=== PATIENT | male | born 1990 | race Caucasian/White ===

== ENCOUNTER 2021-09-28 14:52 | Emergency (ER) | payer OTHER, SELFPAY ==
[2021-09-28 16:00] VITALS: BP 166/97; PULSE 81; RESP 20; TEMP 36.7; O2SAT 98
[2021-09-28] MEDS: ACETAMINOPHEN 325 MG TABLET 650 MG PO (16:20)
--- NOTE | 2021-09-28 17:54 | ED.EPISTAXIS ---
HPI - Epistaxis General Chief complaint: Epistaxis Stated complaint: nose bleed Time Seen by Provider: 09/28/21 14:55 Source: patient and RN notes reviewed Mode of arrival: ambulatory Limitations: no limitations History of Present Illness complaint: epistaxis Location: bilateral nostril Onset (ago): hour(s) (6) Context: history of previous Treatment prior to arrival: nose pinching and stuffed nose with tissue Related Data Allergies Allergy/AdvReac Type Severity Reaction Status Date / Time cefaclor [From Ceclor] Allergy Unknown Verified 09/30/21 12:58 Review of Systems Review of Systems: All systems reviewed & are unremarkable except as noted in HPI and below PMFSH Past Medical History Medical History Epistaxis Exam Const: General: no acute distress and alert Nutritional Appearance: well nourished Orientation/consciousness: patient oriented x3 Limitations: no limitations HENMT: Head: normal to inspection Ears: external ears normal, TM's normal bilaterally and EAC's normal General nose exam: Normal external nose present, Normal nares present and Epistaxis present Face and sinus: normal facial exam and sinuses nontender Mouth: Yes lip normal and Yes moist mucous membranes Eyes: Conjunctivae: conjunctivae normal Pupils: Equal, round and reactive pupils present EOM: EOMs intact bilaterally Neck: Neck: normal visual inspection and no lymphadenopathy Chest: Chest palpation & inspection: normal inspection of the chest Resp: Effort & Inspection: normal respiratory effort Auscultation: clear to auscultation bilaterally Cardio: Rate: regular rate Rhythm: regular rhythm GI: GI Palp: Yes Soft to palpation and No Tenderness to palpation present (GI) Auscultation: normal bowel sounds : General: Yes bladder normal to palpation Male General Exam: Yes normal external exam Testes: Testes normal Back/Spine/Pelvis: Back: no CVA tenderness Skin: General skin exam: normal color Neuro: General: patient oriented x3, moves all extremities, no meningeal signs, no focal motor deficits and CN's II-XI intact bilaterally Extrem: General: normal to inspection and no pedal edema Psych: Appearance: grossly normal and well kempt Mental Status: mental status grossly normal Affect: normal affect Attitude: cooperative Thought content: Yes Normal thought content present Course Course Emergency Course: pt was stable in the ED, no nasal bleeding post. nasal packing Reevaluation(s) Date: 09/28/21 Time: 15:54 Vital Signs Vital signs: Vital Signs Temperature 36.7 C 09/28/21 16:00 Pulse Rate 81 09/28/21 16:00 Respiratory Rate 20 09/28/21 16:00 Blood Pressure 166/97 H 09/28/21 16:00 Pulse Oximetry 98 09/28/21 16:00 Temperature 36.8 C 09/28/21 18:21 Pulse Rate 95 09/28/21 18:21 Respiratory Rate 20 09/28/21 18:21 Blood Pressure 166/97 H 09/28/21 18:21 Pulse Oximetry 100 09/28/21 18:21 MDM - Epistaxis Differential Diagnosis Differential diagnosis: Likely anterior epistaxis Medical Records Attestation: I reviewed the patient's medical records. Critical Care Time Critical Care Time Critical Care Time: No Total Critical Care Time: 0 Discharge Plan Discharge Clinical Impression: Epistaxis Patient Disposition: Home, Self-Care Condition: Stable Instructions: Antibiotic Form, Nosebleed (ED) Additional Instructions: Home. May RTC prn. PMD in 1-2 days. Off work x 2 days. Prescriptions: No Action cephalexin 500 mg capsule 500 mg PO Q12H Qty: 14 RF: 0 acetaminophen-codeine 300-30 mg tablet 1 tablet PO Q4-6H PRN (Reason: pain) Qty: 30 RF: 0 Follow-up/Referrals: Bethel Corbett MD [Primary Care Provider] - Stand Alone Forms: Work/School Release IP Time of Disposition: 16:53
[2021-09-28] MEDS: traMADol HCL (*CRX) 50 MG TABLET PO (18:08)
[2021-09-28 18:21] VITALS: BP 166/97; PULSE 95; RESP 20; TEMP 36.8; O2SAT 100
== END 2021-09-28 18:24 | disposition home or self-care (01) ==
PROVIDERS: Emergency Provider Emergency Medicine; PCP Internal Medicine
DX: R04.0 Epistaxis (principal)
CPT/HCPCS: 30901; 99283; A9270

== ENCOUNTER 2023-09-12 10:13 | Outpatient (CLI) | payer OTHER, SELFPAY ==
--- NOTE | ~2023-09-12 | XR_ITS ---
AP and lateral views of the right hip Clinical history: Pain Findings: No acute fracture or dislocation is seen. Osseous alignment is anatomic. The right hip join t space is preserved. Soft tissues are unremarkable. Impression: No significant abnormality is seen. Reviewed, dictated and finalized at location . [employer] PROFESSOR Impression: No significant abnormality is seen.
--- NOTE | ~2023-09-12 | XR_ITS ---
EXAMINATION: XR lumbar spine 2-3V DATE: 09/12/2023 10:35 INDICATION: Low back pain TECHNIQUE: Anteroposterior and lateral views of the lumbar spine, and cone-down lateral view of the l umbosacral junction were obtained. COMPARISON: 08/04/2009 FINDINGS: Bone alignment is normal. There is no fracture. The vertebral body heights and intervertebr al disc spaces are normal. IMPRESSION: 1. Unremarkable lumbar spine radiographs. Reviewed, dictated and finalized at location L. [employer]ACE DESIGNER
== END 2023-09-12 10:14 | disposition home or self-care (01) ==
LOC: CHSIMG 10:16
PROVIDERS: PCP Internal Medicine; Visit Provider Internal Medicine
DX: M25.551 Pain in right hip (principal)
CPT/HCPCS: 72100; 73502

== ENCOUNTER 2023-10-05 06:49 | Outpatient (CLI) | payer OTHER, SELFPAY ==
--- NOTE | ~2023-10-05 | MR_ITS ---
MRI of the right hip Clinical history: Pain Technique: Coronal T1-weighted, T2-weighted, and proton-density fat-sat images, and axial T1-weighted and proton-density fat-sat images were acquired through the pelvis. Coronal T2-weighted images and c oronal, axial, and sagittal proton-density fat-sat images were acquired through the right hip. Findings: No fracture or osteonecrosis seen. Number signals in the proximal femora and visualized pel analia bones are unremarkable. Bilateral hip and SI joint spaces are preserved. No significant degenerat aura change. No erosive change. Minimal right hip joint effusion present, nonspecific. No right acetab ular labral tear seen. Visualized musculature about the pelvis and right hip is unremarkable. No muscle atrophy or edema see n. Visualized tendons are intact. No bursitis. No soft tissue mass or fluid collection. IMPRESSION: Minimal right hip joint effusion, of uncertain clinical significance/etiology. No other significant findings. Reviewed, dictated and finalized at location .
== END 2023-10-05 06:50 | disposition home or self-care (01) ==
LOC: CHSIMG 06:51
PROVIDERS: PCP Internal Medicine; Visit Provider Internal Medicine
DX: M25.551 Pain in right hip (principal); M25.451 Effusion, right hip
CPT/HCPCS: 73721

== ENCOUNTER 2023-11-04 00:29 | Emergency (ER) | payer OTHER, SELFPAY ==
[2023-11-04 00:45] VITALS: BP 124/89; PULSE 62; RESP 18; TEMP 36.3; O2SAT 98
--- NOTE | 2023-11-04 00:53 | ED.GENADULT ---
HPI - General Adult General Chief complaint: Wound/Laceration Stated complaint: s/p toenail extraction Time Seen by Provider: 11/04/23 00:50 History of Present Illness HPI narrative: the patient is a 33-year-old male who has had a left ingrown toenail in the left foot, completed a course of antibiotics and then this morning had the toenail removed. He took a shower this evening, the dressing got saturated and moist and he comes in for a dressing change. No other complaints. Six months ago, the patient had repair of a labral tear in the left hip. He is unable to bend down completely to for a dressing change. Related Data Allergies Allergy/AdvReac Type Severity Reaction Status Date / Time cefaclor [From [facility]] Allergy Unknown Verified 11/04/23 00:55 Review of Systems Review of Systems: All systems reviewed & are unremarkable except as noted in HPI and below Constitutional: Constitutional: Denies chills, Denies excessive sweating, Denies fatigue, Denies fever(s), Denies headache(s) and Denies weakness Eyes: Eyes: Denies change in vision and Denies photophobia ENT: Denies dysphagia, Denies dizziness, Denies headache(s), Denies lip swelling, Denies nasal congestion, Denies sore throat and Denies tongue swelling Cardiovascular: Cardiovascular: Denies chest pain, Denies syncope, Denies rapid heart rate and Denies dyspnea Respiratory: Respiratory: Denies cough, Denies dyspnea and Denies wheezing Gastrointestinal: Gastrointestinal: Denies abdominal pain, Denies constipation, Denies dysphagia, Denies diarrhea, Denies nausea and Denies vomiting Genitourinary: Genitourinary: Denies hematuria, Denies dysuria, Denies urinary frequency and Denies urinary urgency Musculoskeletal: Musculoskeletal: Denies back pain, Denies myalgias, Denies arthralgias, Denies joint swelling and Denies numbness Integumentary/Breasts: Skin/Breast: Denies pruritus, Denies erythema and Denies rash Neurologic: Denies confusion, Denies dizziness, Denies syncope, Denies headache(s), Denies focal weakness, Denies numbness and Denies weakness Psychiatric: Psychiatric: Denies anxiety and Denies confusion Endocrine: Endocrine: Denies excessive sweating and Denies fatigue Hematologic/Lymphatic: Hematologic/Lymphatic: Denies easy bleeding and Denies easy bruising Allergic/Immunologic: Allergic/Immunologic: Denies lip swelling, Denies tongue swelling and Denies wheezing PMFSH Past Medical History Medical History Epistaxis Exam Const: General: healthy appearing, no acute distress, alert and well nourished Nutritional Appearance: well nourished Orientation/consciousness: patient oriented x3 Limitations: no limitations HENMT: Head: normal to inspection Ears: external ears normal Face/Nose/Sinus: normal facial exam Face and sinus: normal facial exam Mouth: Yes moist mucous membranes Throat: posterior oropharynx normal Eyes: Conjunctivae: conjunctivae normal Pupils: Equal, round and reactive pupils present EOM: EOMs intact bilaterally Neck: Neck: normal visual inspection and no meningeal signs Chest: Chest palpation & inspection: normal inspection of the chest and no tenderness Resp: Effort & Inspection: normal respiratory effort and not labored Auscultation: clear to auscultation bilaterally, no crackles, no rhonchi and no wheezes Cardio: Rate: regular rate Rhythm: regular rhythm Heart sounds: no murmurs GI: Inspection: non-distended GI Palp: Yes Soft to palpation, No Tenderness to palpation present (GI), No Guarding due to palpation present (GI) and No Rebound tenderness present : General: Yes no CVA tenderness Back/Spine/Pelvis: Back: no CVA tenderness Cervical Spine: No Cervical spine tenderness Thoracic/Lumbar Spine: No thoracic spinal tenderness Skin: General skin exam: normal color Rashes: no rashes Wounds: wounds noted ( Left toenail has been removed. No active infection at p
--- NOTE | 2023-11-04 01:15 | PC.NURSE ---
Pt wound cleaned with Betadine solution and dressed with KAYLI, non-adherent dressing, gauze pad, and gauze roll as directed. Pt verbalized understanding and wound care instructions provided. Pt voiced no questions.
== END 2023-11-04 01:25 | disposition home or self-care (01) ==
PROVIDERS: Emergency Provider Emergency Medicine; PCP Internal Medicine
DX: Z48.01 Encounter for change or removal of surgical wound dressing (principal)
CPT/HCPCS: 99283